=== PATIENT | male | born 1960 | race Caucasian/White ===

== ENCOUNTER 2021-09-02 17:39 | Observation (INO) ==
[2021-09-02] MEDS ORDERED: SODIUM CHLORIDE 0.9% 1000ML 1,000 ML IV SCH (18:00)
[2021-09-02] MEDS ORDERED: dilTIAZem HCl 5 MG/ML 5 ML VIAL IV STA (18:08)
--- NOTE | 2021-09-02 18:08 | Emergency Department Note ---
Impression & Plan Atrial fibrillation with rapid ventricular response, Chest pain ED Provider Note NAME: ANGELITA [id number] OSMIN AGE: 61 SEX: M : 1960 ARRIVES VIA: Ambulance INFORMANT: Patient, ED PROVIDER(S): Chris Cobos DO CHIEF COMPLAINT: Palpitations HPI: The patient is a 61-year-old male who presented to the emergency department for an evaluation of palpitations and chest pain. The patient states he has had chest pain and palpitations for approximately 1 month. He went to medication past today in the correction and was noted to have an abnormal pulse. He had an EKG which revealed atrial fibrillation and was was sent to the emergency department for further evaluation. The patient was treated with aspirin and nitroglycerin prior to arrival. He states his chest pain is resolved. He denies having any abdominal pain. He said no diarrhea. He denies having any cough or fever. He has had some dyspnea with exertion. He denies having any lower extremity swelling or pain. He states he has had a history of palpitations in the past but never was diagnosed with atrial fibrillation. ROS: See above HPI for pertinent positives & negatives. A total of 10 systems reviewed and were otherwise negative. PAST MEDICAL HISTORY: See Below PAST SURGICAL HISTORY: See Below FAMILY HISTORY: See Below SOCIAL HISTORY: See Below HOME MEDICATIONS: See Below ALLERGIES: See Below VITALS: See Below PHYSICAL EXAMINATION: GENERAL: Patient is awake alert in no acute distress patient is resting comfortably and showing no signs of anxiety EYES: The conjunctivae are clear. The pupils are round and reactive. EARS, NOSE, MOUTH AND THROAT: The nose is without any evidence of any deformity. Mucous membranes are moist. Tongue is midline. NECK: The neck is nontender and supple. RESPIRATORY: Normal respiratory effort is noted there is no evidence of wheezing rhonchi or rales CARDIOVASCULAR: Tachycardic and irregular heart sounds were noted to auscultation. There is no definite murmur. GASTROINTESTINAL: The abdomen is soft. Abdomen is nontender. MUSCULOSKELETAL/EXTREMITIES: There is no evidence of gross deformity full range of motion is noted in the hips and shoulders. SKIN: There is no obvious evidence of any rash. There are no petechiae, pallor or cyanosis noted. NEUROLOGIC: Patient is awake alert and oriented x3 MEDICAL DECISION MAKING: The patient is a 61-year-old male who presented to the emergency department by ambulance for an evaluation of chest discomfort. The patient describes anterior chest discomfort and palpitations. He went to receive his medications at the [facility] and was found to be in rapid atrial fibrillation. He was sent to the emergency department for further evaluation. The patient was treated with IV fluids. He was treated with aspirin and nitroglycerin prior to arrival. He was treated with IV magnesium and IV Cardizem in the emergency department. On reevaluation he was feeling much better. Pulse rate improved. The [facility] hospitalist group was notified about the patient. They will evaluate the patient in the emergency department. Triage Nursing notes reviewed. Prior medical records reviewed Vital Signs: reviewed and remarkable for hypertension and tachycardia. Differential diagnosis: Premature contractions, electrolyte abnormality, cardiac dysrhythmia, thyroid dysfunction, pulmonary embolism, infection, gastrointestinal, as well as other pathologies. ER treatment provided: See below Diagnostics interpreted by me: ECG: EKG was obtained in the emergency department. My interpretation is atrial fibrillation at 107 bpm. PVCs were noted. Nonspecific ST segment abnormalities were noted. No previous tracing was available. Cardiac Monitoring: An order was placed for continuous cardiac monitoring. The monitor shows a rate of 99 bpm with sinus rhythm. Laboratory studies: As stated above and show below. Imaging studies: See below Consultation(s): Dr. Aragon was notified about the patient. She will evaluate the patient in the emergency department. Past Med/Surg History Medical History Asthma Bipolar 2 disorder Cirrhosis Hepatitis C Hyperlipidemia Neuroleptic induced parkinsonism Tobacco use Social History Smoking Status: Former smoker Tobacco Type: Smokeless Tobacco (Dip or Chew) Feels Safe at Home: Yes Allergies Allergies Allergy/AdvReac Type Severity Reaction Status Date / Time No Known Allergies Allergy Unverified 09/02/21 17:53 Home Meds Home Medications Medication Instructions Recorded Confirmed albuterol sulfate 90 mcg/actuation 2 puff INHALATION QID PRN 09/02/21 09/02/21 aerosol inhaler atorvastatin 20 mg tablet 20 mg PO HS 09/02/21 09/02/21 buspirone 10 mg tablet 20 mg PO HS 09/02/21 09/02/21 ciclesonide 80 mcg/actuation 1 puff INHALATION BID 09/02/21 09/02/21 aerosol inhaler (Alvesco) divalproex 500 mg tablet,delayed 500 mg PO BID 09/02/21 09/02/21 release levothyroxine 75 mcg tablet 75 mcg PO DAILY 09/02/21 09/02/21 Results & Data (ED) Vital Signs Vital Signs - 24 hr 09/02/21 18:12 09/02/21 18:13 Temperature 37.2 C Temperature Source Oral Pulse Rate 99 H Pulse Rhythm Irregular Pulse Strength Normal Respiratory Rate 18 Respiratory Effort / Characteristics Non-Labored Respiratory Depth Normal Respiratory Pattern Regular Blood Pressure 143/107 H Blood Pressure Mean 119 Blood Pressure Position Lying Pulse Oximetry 97 Oxygen Delivery Method Room Air Room Air Sepsis Recent Fever Within 48 Hours No Sepsis New/Unexplained Change in Mental Status No Sepsis Action Taken by Nursing No Action Required Home Medications Current Medication List: was personally reviewed by me Laboratory Data Attestation: I reviewed the patient's lab results. Result diagrams: 09/02/21 18:04 09/02/21 18:04 Lab Results 09/02/21 09/02/21 09/02/21 Range/Units 18:04 18:04 18:04 WBC 8.74 (4.8-10.8) K/uL RBC 4.77 (4.7-6.1) M/uL Hgb 15.0 (14.0-18.0) g/dL Hct 44.5 (42-52) % MCV 93.3 (80-100) fL MCH 31.4 (25-34) pg MCHC 33.7 (32-36) g/dL RDW Std Deviation 44.3 (36.4-46.3) fL RDW Coeff of Cherelle 12.9 (11.5-14.5) % Plt Count 183 (130-400) K/uL MPV 12.9 H (7.4-10.4) fL Immature Gran % (Auto) 0.3 % Neut % (Auto) 66.2 % Lymph % (Auto) 22.2 % [place] % (Auto) 9.6 % Eos % (Auto) 1.4 % Baso % (Auto) 0.3 % Neut # (Auto) 5.78 (1.4-6.5) K/uL Lymph # (Auto) 1.94 (1.2-3.4) K/uL [place] # (Auto) 0.84 H (0.11-0.59) K/uL Eos # (Auto) 0.12 (0-0.5) K/uL Baso # (Auto) 0.03 (0-0.2) K/uL Immature Gran # (Auto) 0.03 H (0.00-0.02) K/uL PT 10.3 (9.0-12.0) Seconds INR 1.0 (0.9-1.1) APTT 23.4 (21.0-31.0) Seconds PTT Ratio 0.9 Sodium 137 (136-145) mmol/L Potassium 4.6 (3.5-5.1) mmol/L Chloride 107 (98-107) mmol/L Carbon Dioxide 21 (21-32) mmol/L Anion Gap 9 (3-11) BUN 20 (6-23) mg/dl Creatinine 0.84 (0.6-1.4) mg/dl Est Cr Clr Drug Dosing 109.5 ml/min Est GFR ( Amer) 108.0 ml/min Est GFR (Non-Af Amer) 93.2 ml/min BUN/Creatinine Ratio 23.8 H (10-20) Glucose 112 H (70-99(Fasting)) mg/dl Calcium 9.0 (8.5-10.1) mg/dl Magnesium 1.8 (1.7-2.4) mg/dl Total Bilirubin 0.7 (0.2-1.0) mg/dl AST 20 (13-39) U/L ALT 20 (7-52) U/L Alkaline Phosphatase 70 (34-104) U/L Troponin I < 0.03 (0-0.04) ng/ml Total Protein 7.3 (6.0-8.3) gm/dl Albumin 4.3 (3.4-5.0) gm/dl Globulin 3.0 (2.5-4.0) gm/dl Albumin/Globulin Ratio 1.4 (0.9-2) TSH (0.300-4.500) uIu/ml Valproic Acid (50-100) mcg/ml SARS-CoV-2, RNA, NAAT (NEGATIVE) 09/02/21 09/02/21 09/02/21 Range/Units 18:04 18:04 18:19 WBC (4.8-10.8) K/uL RBC (4.7-6.1) M/uL Hgb (14.0-18.0) g/dL Hct (42-52) % MCV (80-100) fL MCH (25-34) pg MCHC (32-36) g/dL RDW Std Deviation (36.4-46.3) fL RDW Coeff of Cherelle (11.5-14.5) % Plt Count (130-400) K/uL MPV (7.4-10.4) fL Immature Gran % (Auto) % Neut % (Auto) % Lymph % (Auto) % [place] % (Auto) % Eos % (Auto) % Baso % (Auto) % Neut # (Auto) (1.4-6.5) K/uL Lymph # (Auto) (1.2-3.4) K/uL [place] # (Auto) (0.11-0.59) K/uL Eos # (Auto) (0-0.5) K/uL Baso # (Auto) (0-0.2) K/uL Immature Gran # (Auto) (0.00-0.02) K/uL PT (9.0-12.0) Seconds INR (0.9-1.1) APTT (21.0-31.0) Seconds PTT Ratio Sodium (136-145) mmol/L Potassium (3.5-5.1) mmol/L Chloride (98-107) mmol/L Carbon Dioxide (21-32) mmol/L Anion Gap (3-11) BUN (6-23) mg/dl Creatinine (0.6-1.4) mg/dl Est Cr Clr Drug Dosing ml/min Est GFR ( Amer) ml/min Est GFR (Non-Af Amer) ml/min BUN/Creatinine Ratio (10-20) Glucose (70-99(Fasting)) mg/dl Calcium (8.5-10.1) mg/dl Magnesium (1.7-2.4) mg/dl Total Bilirubin (0.2-1.0) mg/dl AST (13-39) U/L ALT (7-52) U/L Alkaline Phosphatase (34-104) U/L Troponin I (0-0.04) ng/ml Total Protein (6.0-8.3) gm/dl Albumin (3.4-5.0) gm/dl Globulin (2.5-4.0) gm/dl Albumin/Globulin Ratio (0.9-2) TSH 1.081 (0.300-4.500) uIu/ml Valproic Acid < 10 L (50-100) mcg/ml SARS-CoV-2, RNA, NAAT NEGATIVE (NEGATIVE) Administered Medications Magnesium Sulfate/Dextrose (Magnesium Sulfate / D5w) 1 gm in 100 mls @ 100 mls/hr IV Q1H CHAD Stop: 09/02/21 19:59 Last Admin: 09/02/21 18:59 Dose: 100 mls/hr Documented by: [id number] Discontinued Medications Diltiazem HCl (Diltiazem Hcl 5 Mg/Ml 5 Ml Vial) 20 mg IV NOW STA Stop: 09/02/21 18:09 Last Admin: 09/02/21 18:39 Dose: 20 mg Documented by: [id number] Cosigned by: [id number] Sodium Chloride (Nss 1000ml) 1,000 mls @ 999 mls/hr IV .Q1H1M CHAD Stop: 09/02/21 19:00 Last Admin: 09/02/21 18:40 Dose: 999 mls/hr Documented by: [id number] Imaging Data Radiologist's Impression: Chest X-Ray 09/02/21 17:49 XR chest 1V portable CLINICAL HISTORY: weakness TECHNIQUE: Single frontal radiograph of the chest was obtained. Comparison: None available at the time of this dictation. FINDINGS: No lines and tubes are seen. The cardiomediastinal silhouette is normal. The lungs are clear. No evidence of pleural effusion or pneumothorax. IMPRESSION: No acute chest disease. ACT 112: Negative or not required by law. Electronically signed by: Bryan Minor M.D. 09/02/2021 6:19 PM Discharge Plan Visit Data Chief Complaint: Cardiac Assessment Stated Complaint: Cardiac Assessment ED Provider: Chris Cobos Discharge Problem: Atrial fibrillation with rapid ventricular response, Chest pain Patient Disposition: Being Evaluated by Hospitalist Forms Stand Alone Forms: My [facility] Prescriptions Prescriptions: No Action atorvastatin 20 mg Tablet 20 mg PO HS RF: 0 levothyroxine 75 mcg Tablet 75 mcg PO DAILY RF: 0 albuterol sulfate 90 mcg/actuation Hfa Aerosol Inhaler 2 puff INHALATION QID PRN (Reason: Shortness Of Breath) RF: 0 Alvesco 80 mcg/actuation Hfa Aerosol Inhaler 1 puff INHALATION BID RF: 0 divalproex 500 mg Tablet,Delayed Release (Dr/Ec) 500 mg PO BID RF: 0 buspirone 10 mg Tablet 20 mg PO HS RF: 0 Referrals Referrals: PCP,NO [Physician] -
--- NOTE | 2021-09-02 18:20 | XRay Report ---
XR chest 1V portable CLINICAL HISTORY: weakness TECHNIQUE: Single frontal radiograph of the chest was obtained. Comparison: None available at the time of this dictation. FINDINGS: No lines and tubes are seen. The cardiomediastinal silhouette is normal. The lungs are clear. No evid ence of pleural effusion or pneumothorax. IMPRESSION: No acute chest disease. ACT 112: Negative or not required by law. Electronically signed by: Bryan Minor M.D. 09/02/2021 6:19 PM
[2021-09-02 18:24] LABS: Partial Thromboplastin Ratio 0.9; Partial Thromboplastin Time 23.4 Seconds (21.0-31.0); Prothrombin Time 10.3 Seconds (9.0-12.0)
[2021-09-02 18:25] LABS: Basophils # (auto) 0.03 K/uL (0-0.2); Basophils % (auto) 0.3 %; Eosinophils # (auto) 0.12 K/uL (0-0.5); Eosinophils % (auto) 1.4 %; Hematocrit (blood only) 44.5 % (42-52); Immature Granulocytes # (auto) 0.03 K/uL (0.00-0.02); Immature Granulocytes % (auto) 0.3 %; Lymphocytes # (auto) 1.94 K/uL (1.2-3.4); Lymphocytes % (auto) 22.2 %; Mean Corpuscular Hemoglobin 31.4 pg (25-34); Mean Corpuscular Hgb Conc 33.7 g/dL (32-36); Mean Corpuscular Volume 93.3 fL (80-100); Mean Platelet Volume 12.9 fL (7.4-10.4); Monocytes # (auto) 0.84 K/uL (0.11-0.59); Monocytes % (auto) 9.6 %; Neutrophils # (auto) 5.78 K/uL (1.4-6.5); Neutrophils % (auto) 66.2 %; Platelet Count 183 K/uL (130-400); RDW Coefficient of Variation 12.9 % (11.5-14.5); RDW Standard Deviation 44.3 fL (36.4-46.3); Red Blood Count 4.77 M/uL (4.7-6.1); White Blood Count 8.74 K/uL (4.8-10.8)
[2021-09-02 18:49] LABS: Troponin I < 0.03 ng/ml (0-0.04)
[2021-09-02 18:53] LABS: Alanine Aminotransferase 20 U/L (7-52); Albumin Globulin Ratio 1.4 (0.9-2); Albumin Level 4.3 gm/dl (3.4-5.0); Alkaline Phosphatase 70 U/L (34-104); Anion Gap 9 (3-11); Aspartate Aminotransferase 20 U/L (13-39); BUN Creatinine Ratio 23.8 (10-20); Bilirubin,Total 0.7 mg/dl (0.2-1.0); Blood Urea Nitrogen 20 mg/dl (6-23); Carbon Dioxide 21 mmol/L (21-32); Chloride 107 mmol/L (98-107); Creatinine Clr Calc Pharmacy 109.5 ml/min; Est GFR (Non-African American) 93.2 ml/min; Glucose 112 mg/dl (70-99(Fasting)); Magnesium 1.8 mg/dl (1.7-2.4); Potassium 4.6 mmol/L (3.5-5.1); Sodium 137 mmol/L (136-145); Total Protein 7.3 gm/dl (6.0-8.3)
[2021-09-02] MEDS: MAGNESIUM SULFATE / D5W 1 GM/100 ML BAG IV SCH ×2 (18:59→20:23)
[2021-09-02] MEDS ORDERED: ALUMINUM/MAGNESIUM SUSP 30 ML UDC PO PRN (21:08)
[2021-09-02] MEDS ORDERED: ACETAMINOPHEN 325 MG TAB PO PRN (21:08)
[2021-09-02] MEDS ORDERED: NITROGLYCERIN SL 0.4 MG/TAB TAB SL PRN (21:08)
[2021-09-02] MEDS ORDERED: ONDANSETRON INJ 2 MG/ML 2 ML VIAL IV PRN (21:08)
[2021-09-02] MEDS ORDERED: POLYETHYLENE (MIRALAX) 17 GM PACK PO PRN (21:08)
--- NOTE | 2021-09-02 21:36 | History & Physical Report ---
Date of Service September 02, 2021 Assessment & Plan (1) Chest pain: Plan: 61M w/ hx hypothyroidism, hyperlipidemia, asthma, Hepatitis C, bipolar 2, anxiety, depression who presented with atypical Chest Pain symptoms being admitted for cardiac assessment/management of A-fib discovered on EKG. Chest pain/Atypical angina * Chest pain does not appear to be cardiac in origin, despite abnormal EKG. Ddx includes musculoskeletal, GI * Troponin negative * TTE ordered * Repeat troponin labs q6h x3 Atrial fibrillation * Unclear if this is new-onset or chronic and undiagnosed. Pt denied hx of palpitations but reports he was told by a doctor in his early 20s that he had a heart abnormality involving heart palpitations. Unclear if this was A-fib. Pt. has no other cardiovascular history other than hyperlipidemia. * Status-post diltiazem push x1; fibrillation appears to have resolved as of 8:15 PM. No need for rate control at this time * [id number] score of 0 (echo, a1c pending); pt reportedly takes Aspirin 325 mg daily. * Holding aspirin for now as no need for anticoagulation at this time. Pt also complained of tinnitus, likely 2/2 aspirin use (resorted to 325 mg as he couldn't find 81 mg in [facility]). Recommend adding aspirin 81 mg to pt. 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 * Etiologic workup pending: TSH, Hgb A1c, UA ordered. Cirrhosis secondary to hepatitis C * LFTs normal on admission, hepatomegaly on examno need for further management at this time. Other chronic conditions: asthma, hyperlipidemia, anxiety/depression, hypothyroidismcontinue home meds. Code: Full Dispo: Med-Surg telemetry FEN/GI: Regular diet at breakfast. DVT Prophylaxis: Lovenox 40 mg q24h (2) Atrial fibrillation with rapid ventricular response: (3) Asthma: (4) Bipolar 2 disorder: (5) Hyperlipidemia: (6) Cirrhosis: (7) Neuroleptic induced parkinsonism: History of Present Illness Primary Care Provider: PATRICK Stover Riaz Ramos is a 61 year old man with PMHx hypothyroidism (on levothyroxine), bipolar 2 d/o, hyperlipidemia (on atorvastatin), hepatitis c cirrhosis, asthma (on albuterol inhaler), anxiety (on buspirone) who presented to the ER from [facility] with a chief complaint of sharp, twinge-like left sided chest pain x 1 month. Denies inciting/palliative factors, patterns of occurrence, pain radiation, GI symptoms, or palpitations. ROS+ diaphoresis. Patient reported being seen in the [facility] for management of chronic cirrhosis, when he appeared clammy with chest pain and abnormal EKG findings were discovered incidentally and was brought to the ER via [facility] ambulance. He received nitroglycerine and aspirin en route, which relieved his chest pain symptoms. Work-up labs and imaging were notable for A-fib with RVR/flutter seen on EKG. He received one-time administrations of iv diltiazem, iv magnesium, and 1L NSS in the ER. At present he denies chest pain, palpitations, dizziness/syncope, SOB, orthopnea, fever/chills, change in bowel habits, or dysuria. ROS+ tinnitus. Allergies Allergy/AdvReac Type Severity Reaction Status Date / Time No Known Allergies Allergy Unverified 09/02/21 17:53 Home Medications Medication Instructions Recorded Confirmed Type albuterol sulfate 90 mcg/actuation 2 puff INHALATION QID PRN 09/02/21 09/02/21 History aerosol inhaler atorvastatin 20 mg tablet 20 mg PO HS 09/02/21 09/02/21 History buspirone 10 mg tablet 20 mg PO HS 09/02/21 09/02/21 History ciclesonide 80 mcg/actuation 1 puff INHALATION BID 09/02/21 09/02/21 History aerosol inhaler (Alvesco) divalproex 500 mg tablet,delayed 500 mg PO BID 09/02/21 09/02/21 History release levothyroxine 75 mcg tablet 75 mcg PO DAILY 09/02/21 09/02/21 History Past Med/Surg History Medical History Asthma Bipolar 2 disorder Cirrhosis Hepatitis C Hyperlipidemia Neuroleptic induced parkinsonism Tobacco use Social History Smoking Status: Former smoker Tobacco Type: Smokeless Tobacco (Dip or Chew) Second Hand Exposure: No; Do You Dip or Chew Tobacco: No; Tobacco Cessation Education Requested by Patient: No Hx Alcohol Use: No Hx Substance Use: No Preferred Language: Nepali Communication Ability: Effective [employer] Salesperson Required: No Beliefs That Will Affect Care: None Current Living Situation: Other Other Information That Helps Us Care for You: No Feels Safe at Home: Yes Safety Concerns: Feels Safe At This Time Assistive Devices: None Review of Systems Review of Systems: All systems reviewed & are unremarkable except as noted in HPI & below Physical Exam Physical Exam: General: Patient is AAO x3 and in no acute distress. HEENT: Non-erythematous oropharynx; no lymphadenopathy; normal dentition. CV: Irregular rate and rhythm. Normal S1 and S2. No murmurs gallops or rubs. No pedal edema. Pulmonary: Lungs are clear to auscultation bilaterally. No crackles, rhonchi, or wheezes. Abdomen: Soft, nondistended abdomen. No bruits heard on auscultation. No tenderness to deep palpation. No guarding or rebound. MSK: Full ROM at all joints. Equal 5/5 strength bilaterally. Psych: Alert and oriented x3. Congruent mood and affect. Results & Data Results & Data ([facility]) Vital Signs (Past 12 Hours) Vital Signs Temp Pulse Resp BP Pulse Ox 09/02/21 20:18 64 17 151/72 H 96 09/02/21 18:13 37.2 C 99 H 18 143/107 H 97 Laboratory Results Laboratory Results WBC 8.74 K/uL (4.8-10.8) 09/02/21 18:04 RBC 4.77 M/uL (4.7-6.1) 09/02/21 18:04 Hgb 15.0 g/dL (14.0-18.0) 09/02/21 18:04 Hct 44.5 % (42-52) 09/02/21 18:04 MCV 93.3 fL (80-100) 09/02/21 18:04 MCH 31.4 pg (25-34) 09/02/21 18:04 MCHC 33.7 g/dL (32-36) 09/02/21 18:04 RDW Std Deviation 44.3 fL (36.4-46.3) 09/02/21 18:04 RDW Coeff of Cherelle 12.9 % (11.5-14.5) 09/02/21 18:04 Plt Count 183 K/uL (130-400) 09/02/21 18:04 MPV 12.9 fL (7.4-10.4) H 09/02/21 18:04 Immature Gran % (Auto) 0.3 % 09/02/21 18:04 Neut % (Auto) 66.2 % 09/02/21 18:04 Lymph % (Auto) 22.2 % 09/02/21 18:04 [place] % (Auto) 9.6 % 09/02/21 18:04 Eos % (Auto) 1.4 % 09/02/21 18:04 Baso % (Auto) 0.3 % 09/02/21 18:04 Neut # (Auto) 5.78 K/uL (1.4-6.5) 09/02/21 18:04 Lymph # (Auto) 1.94 K/uL (1.2-3.4) 09/02/21 18:04 [place] # (Auto) 0.84 K/uL (0.11-0.59) H 09/02/21 18:04 Eos # (Auto) 0.12 K/uL (0-0.5) 09/02/21 18:04 Baso # (Auto) 0.03 K/uL (0-0.2) 09/02/21 18:04 Immature Gran # (Auto) 0.03 K/uL (0.00-0.02) H 09/02/21 18:04 PT 10.3 Seconds (9.0-12.0) 09/02/21 18:04 INR 1.0 (0.9-1.1) 09/02/21 18:04 APTT 23.4 Seconds (21.0-31.0) 09/02/21 18:04 PTT Ratio 0.9 09/02/21 18:04 Sodium 137 mmol/L (136-145) 09/02/21 18:04 Potassium 4.6 mmol/L (3.5-5.1) 09/02/21 18:04 Chloride 107 mmol/L (98-107) 09/02/21 18:04 Carbon Dioxide 21 mmol/L (21-32) 09/02/21 18:04 Anion Gap 9 (3-11) 09/02/21 18:04 BUN 20 mg/dl (6-23) 09/02/21 18:04 Creatinine 0.84 mg/dl (0.6-1.4) 09/02/21 18:04 Est Cr Clr Drug Dosing 109.5 ml/min 09/02/21 18:04 Est GFR ( Amer) 108.0 ml/min 09/02/21 18:04 Est GFR (Non-Af Amer) 93.2 ml/min 09/02/21 18:04 BUN/Creatinine Ratio 23.8 (10-20) H 09/02/21 18:04 Glucose 112 mg/dl (70-99(Fasting)) H 09/02/21 18:04 Calcium 9.0 mg/dl (8.5-10.1) 09/02/21 18:04 Magnesium 1.8 mg/dl (1.7-2.4) 09/02/21 18:04 Total Bilirubin 0.7 mg/dl (0.2-1.0) 09/02/21 18:04 AST 20 U/L (13-39) 09/02/21 18:04 ALT 20 U/L (7-52) 09/02/21 18:04 Alkaline Phosphatase 70 U/L (34-104) 09/02/21 18:04 Troponin I Cancelled 09/03/21 01:08 Total Protein 7.3 gm/dl (6.0-8.3) 09/02/21 18:04 Albumin 4.3 gm/dl (3.4-5.0) 09/02/21 18:04 Globulin 3.0 gm/dl (2.5-4.0) 09/02/21 18:04 Albumin/Globulin Ratio 1.4 (0.9-2) 09/02/21 18:04 TSH 1.081 uIu/ml (0.300-4.500) 09/02/21 18:04 Nasal Screen MRSA (PCR) Negative (Negative) 09/03/21 00:23 Valproic Acid < 10 mcg/ml (50-100) L 09/02/21 18:04 SARS-CoV-2, RNA, NAAT NEGATIVE (NEGATIVE) 09/02/21 18:19 Impressions Chest X-Ray 09/02/21 17:49 XR chest 1V portable CLINICAL HISTORY: weakness TECHNIQUE: Single frontal radiograph of the chest was obtained. Comparison: None available at the time of this dictation. FINDINGS: No lines and tubes are seen. The cardiomediastinal silhouette is normal. The kate ngs are clear. No evidence of pleural effusion or pneumothorax. IMPRESSION: No acute chest disease. ACT 112: Negative or not required by law. Electronically signed by: Bryan Minor M.D. 09/02/2021 6:19 PM Supervising Physician Co-Signing Physician Notes Patient seen and examined, chart reviewed, case discussed with Dr. Gregory and I agree with the assessment and plan as documented above. In brief, patient is a 61-year-old male presenting from [facility] with chest pain. Found to be in atrial fibrillation. Uncertain if this is a new diagnosis. Patient states that he has had palpitations ongoing since he was in his 20s. States he may have been told he has atrial fibrillation in the past but has never undergone formal work-up. His chest pain is occasionally exertional and has become more frequent of late. He does take aspirin 325 mg p.o. daily on his own accord On exam he is resting comfortably in bed, awake alert and oriented x3 Skinwarm, dry, intact, no rash or lesions HEENTnormocephalic/atraumatic, pupils equal and reactive, neck supple Heart + S1-S2, irregular, no murmurs/rubs/gallops Lungsclear to auscultation Abdomenpositive bowel sounds, soft, nontender, nondistended Extremities: Warm, well-perfused, no clubbing/cyanosis/edema Labs and images reviewed. TSH is within normal limits. Troponin is negative x1, repeat is pending. Electrolytes are favorable Patient was administered IV magnesium as well as IV fluids and diltiazem in the ER with conversion to sinus bradycardia. [id number] score equals 0 Patient complains of tinnitus. No metabolic abnormalities noted on chemistries. He has been taking aspirin 325 mg daily. Will check salicylate level Telemetry monitoring Check 2D echo Trend troponin Remainder of plan as above Resident Activity Tracking Resident Involvement: Resident Care Provided Care Provided: Adult Hospital Medicine (1) Chest pain Chest pain type: unspecified Qualified Code(s): R07.9 - Chest pain, unspecified
[2021-09-03] MEDS ORDERED: ALBUTEROL HFA 8 GM INHALER INH PRN (00:05)
--- NOTE | 2021-09-03 05:29 | Billing Data ---
Date of Service September 02, 2021 Coding Level of Care Code INT OBSERVATION CARE 48M LVL 2
[2021-09-03] MEDS ORDERED: LEVOTHYROXINE SODIUM 75 MCG TABLET PO SCH (06:30)
[2021-09-03 07:24] LABS: Estimated Average Glucose 120 mg/dl; Hemoglobin A1C 5.8 % (4.5-5.6)
[2021-09-03] MEDS ORDERED: Flu Vaccine (Fluarix) 0.5mL SYR (Standard Dose) IM ONE (08:00)
[2021-09-03] MEDS ORDERED: FLUTICASONE FUROATE 200MCG 14 PUFFS/INHALER INH SCH (09:00)
[2021-09-03] MEDS ORDERED: ENOXAPARIN INJ 40 MG/0.4 ML SYR SQ SCH (09:00)
[2021-09-03 09:54] LABS: Appearance Urine Clear (Clear); Bilirubin Urine Negative (Negative); Blood Urine Negative (Negative); Color Urine Yellow; Glucose Urine UA Negative (Negative); Ketones Urine Trace (Negative); Leukocyte Esterase Urine Negative (Negative); Nitrite Urine Negative (Negative); Protein Urine Negative (Negative); Specific Gravity Urine 1.022 (1.000-1.030); Urobilinogen Urine Negative (Negative); pH Urine 6.5 (4.5-7.5)
--- NOTE | 2021-09-03 10:30 | XCELERA ---
[id number]
--- NOTE | 2021-09-03 20:34 | Discharge Summary ---
Date of Service September 03, 2021 Admission HPI Per Admitting Provider Riaz Ramos is a 61 year old man with PMHx hypothyroidism (on levothyroxine), bipolar 2 d/o, hyperlipidemia (on atorvastatin), hepatitis c cirrhosis, asthma (on albuterol inhaler), anxiety (on buspirone) who presented to the ER from [facility] with a chief complaint of sharp, twinge-like left sided chest pain x 1 month. Denies inciting/palliative factors, patterns of occurrence, pain radiation, GI symptoms, or palpitations. ROS+ diaphoresis. Patient reported being seen in the [facility] for management of chronic cirrhosis, when he appeared clammy with chest pain and abnormal EKG findings were discovered incide ntally and was brought to the ER via [facility] ambulance. He received nitroglycerine and aspirin en route, which relieved his chest pain symptoms. Work-up labs and imaging were notable for A-fib with RVR/flutter seen on EKG. He received one-time administrations of iv diltiazem, iv magnesium, and 1L NSS in the ER. At present he denies chest pain, palpitations, dizziness/syncope, SOB, ortho pnea, fever/chills, change in bowel habits, or dysuria. ROS+ tinnitus. Principal Diagnosis Paroxysmal atrial fibrillation Discharge Exam Constitutional WD/WN, vitals as above Eyes EOM intact bilaterally; no conjunctival abnormality ENMT external ear and nose normal, oropharynx normal Neck trachea midline, no thyromegaly normal visual inspection Respiratory normal respiratory effort, lungs clear to auscultation no respiratory distress Cardiovascular RRR, no murmur, no edema Gastrointestinal (Abdomen) Inspection/Auscultation: abdomen normal to inspection; abdomen not distended Musculoskeletal no cyanosis or clubbing, extremities motor strength 5/5 Skin no rashes, warm and dry Neurologic moves all extremities and awake Psychiatric Orientation: alert, oriented to person and cooperative Discharge Data Allergies Allergy/AdvReac Type Severity Reaction Status Date / Time No Known Allergies Allergy Unverified 09/02/21 17:53 Consultations 09/02/21 19:05 ED Decision to Admit Stat Hospital Course (1) Chest pain: 61M w/ hx hypothyroidism, hyperlipidemia, asthma, Hepatitis C, bipolar 2, anxiety, depression who presented with atypical Chest Pain symptoms being admitted for cardiac assessment/management of A-fib discovered on EKG. Chest pain/Atypical angina * Troponins negative * TTE without any regional wall motion issues. Atrial fibrillation * Pt denied hx of palpitations but reports he was told by a doctor in his early 20s that he had a heart abnormality involving heart palpitations. Unclear if this was A-fib. * Status-post diltiazem push x1; fibrillation appears to have resolved as of 8:15 PM. No need for rate control at this time. * [id number] score of 0. * Discussed with cardiology. Even in afib, his rate was ~100 - 110 bpm. Per patient, his episodes are usually 1-2 minutes and self-resolve. No syncope with episodes. The issue is that he is borderline bradycardic in sinus and only moderately fast in afib, so he really does not need rate control (beta- keiry or calcium channel keiry) in general. * -> If episodes become more frequent or longer, he may end up being tachy- abdoulaye, and requiring a pacemaker to allow for rate-control when he is in afib. At present, cardiology recommended monitoring. Cirrhosis secondary to hepatitis C * LFTs normal on admission, hepatomegaly on examno need for further management at this time. Other chronic conditions: asthma, hyperlipidemia, anxiety/depression, hypothyroidismcontinue home meds. Code: Full Dispo: Med-Surg telemetry FEN/GI: Regular diet at breakfast. DVT Prophylaxis: Lovenox 40 mg q24h (2) Atrial fibrillation with rapid ventricular response: (3) Asthma: (4) Bipolar 2 disorder: (5) Hyperlipidemia: (6) Cirrhosis: (7) Neuroleptic induced parkinsonism: Total Time Total Time Spent Total Time Spent (In Minutes): 30 Discharge Plan Discharge Items [facility]position[facility] Reason For Visit: RIGHT SIDED CHEST PAIN Discharge Diagnosis: Paroxysmal atrial flutter Activity: Resume your previous activity Non-emergency contact: Primary Care Provider Call non-emergency contact if: your symptoms worsen Follow-up/Referrals: Almas Green MD [Physician] - (Please see Dr. Green in 1-2 months for follow-up.) Jolanta NGUYEN [Primary Care Provider] - Diet: Heart Healthy Addtl Attending Provider Instructions: Mr. Ramos was admitted to the hospital with atrial fibrillation and a rapid heart rate. In our hospital, the highest rate was 110. While still in the ER, he transitioned back to sinus rhythm with a heart rate in the 60s. He remained in this rhythm the rest of the hospitalization. The echo of your heart showed that you have a great squeeze (EF 60 - 65%) and no valve issues. Given your low risk factors, you do *NOT* need a blood thinner (anticoagulation). You can take a baby aspirin (81 mg) if you would like, but this is not officially a recommendation from heart associations. I spoke with the heart doctor here, and given your fairly brief episodes (per your report, 1-2 minutes most times), and the fact that your heart seems to only go up to 110 or so, you do not need any other medications. Please follow up with the [facility] doctor in a week or so to be sure you are doing well. Pending Studies at Discharge: No Skilled Items Patient informed of condition?: No DNR: No Discharge Level of Care: Skilled Communicable Disease: No Discharge Prognosis: Stable Lines: None Urinary Catheter: No Medications and DC Order Prescriptions: Continued atorvastatin 20 mg Tablet 20 mg PO HS RF: 0 levothyroxine 75 mcg Tablet 75 mcg PO DAILY RF: 0 albuterol sulfate 90 mcg/actuation Hfa Aerosol Inhaler 2 puff INHALATION QID PRN (Reason: Shortness Of Breath) RF: 0 Alvesco 80 mcg/actuation Hfa Aerosol Inhaler 1 puff INHALATION BID RF: 0 divalproex 500 mg Tablet,Delayed Release (Dr/Ec) 500 mg PO BID RF: 0 buspirone 10 mg Tablet 20 mg PO HS RF: 0 Admission Data Admit Date/Time: 09/02/21 21:09 Attending Provider: Alfie Shah Admit Provider: Anshu Gregory Primary Care Provider: Jolanta NGUYEN Other Providers: Alfie Shah Other Interventions: Discharge Summary Assessment (RN) Last Done: 09/03/21 13:54 Coding Level of Care Code 13696 OBS Care - Discharge Diagnoses Chest pain R07.9 Chest pain type: unspecified Atrial fibrillation with rapid ventricular response I48.91 Asthma J45.909 Bipolar 2 disorder F31.81 Hyperlipidemia E78.5 Cirrhosis K74.60 Neuroleptic induced parkinsonism G21.11
[2021-09-03] MEDS ORDERED: busPIRone 5 MG TAB PO SCH (21:00)
[2021-09-03] MEDS ORDERED: ATORVASTATIN 20 MG TAB PO SCH (21:00)
--- NOTE | 2021-09-04 17:56 | Electrocardiogram Report ---
Test Reason : Blood Pressure : / mmHG Vent. Rate : 107 BPM Atrial Rate : 122 BPM P-R Int : 000 ms QRS Dur : 078 ms QT Int : 318 ms P-R-T Axes : 000 052 -36 degrees QTc Int : 424 ms Atrial fibrillation with rapid ventricular response Premature ventricular complexes Abnormal ECG No previous ECGs available Confirmed by Almas Green ([id number]) on 09/04/2021 5:55:58 PM Referred By: Jolanta [facility] Confirmed By:Almas Green
--- NOTE | 2021-09-04 18:08 | Electrocardiogram Report ---
Test Reason : Blood Pressure : / mmHG Vent. Rate : 059 BPM Atrial Rate : 059 BPM P-R Int : 130 ms QRS Dur : 086 ms QT Int : 404 ms P-R-T Axes : 048 057 -06 degrees QTc Int : 399 ms Sinus bradycardia with marked sinus arrhythmia Possible Left atrial enlargement Abnormal QRS-T angle, consider primary T wave abnormality Abnormal ECG When compared with ECG of 02-SEP-2021 18:06, (unconfirmed) Sinus rhythm has replaced Atrial fibrillation Vent. rate has decreased BY 48 BPM Confirmed by Almas Green ([id number]) on 09/04/2021 6:07:45 PM Referred By: Jolanta [facility] Confirmed By:Almas Green
== END 2021-09-03 15:29 ==
LOC: EDINP 17:39 → ED 17:39 → SUATTDRO 21:09 → 2W 09-03 00:53